=== PATIENT | female | born 1975 | race African-American/Black ===

== ENCOUNTER 2018-01-20 05:21 | Day surgery (SDC) | payer OTHER ==
[2018-01-14 15:49] VITALS: BMI 23.6
--- NOTE | 2018-01-20 09:29 | HP ---
[facility] - Chief Complaint Chief Complaint: left wrist pain History of Present Illness: left Dequervain's History Source: Patient Limitations to Obtaining History: No Limitations - Past Medical History Allergies/Adverse Reactions: Allergies Allergy/AdvReac Type Severity Reaction Status Date / Time No Known Allergies Allergy Verified 01/14/18 15:43 ...LMP: 09/27/17 ...LMP Comment: rai menopause? - Current Medications Current Medications: Home Medications Medication Instructions Recorded NK [No Known Home Medication] 01/14/18 Satellite Physical Exam - Physical Examination Vital Signs: Vital Signs Period Temp Pulse Resp BP Sys/Richards Pulse Ox Last 24 Hr 97.8 F 64 20 113/83 99 General Appearance: Well Nourished ENT: Clear Lung: Clear to auscultation Heart: Regular rate & rhythm Breasts: Soft Abdomen: Soft Extremities: No edema Satellite Impression/Plan - Impression/Plan Impression: left Dequervain's Operative Procedure: left Dequervain's release Date to be Performed: 01/20/18
[2018-01-20] MEDS ORDERED: LIDOCAINE HCL 2% (20ML MULTI-DOSE VIAL) NR ONE (09:41)
[2018-01-20] MEDS ORDERED: MIDAZOLAM HCL 2 MG/2 ML SINGLE DOSE VIAL ONE ×2 (09:52→10:03)
[2018-01-20] MEDS ORDERED: ceFAZolin SODIUM 1 GM VIAL IVPB ONE (10:10)
[2018-01-20] MEDS ORDERED: LIDOCAINE HCL 2% (50ML VIAL) PNB ONE (10:20)
[2018-01-20] MEDS ORDERED: BUPIVACAINE HCL/PF 0.5% (5MG/ML) 10 ML VIAL IJ ONE (10:20)
[2018-01-20] MEDS ORDERED: ONDANSETRON 4 MG/2 ML VIAL IVPUSH PRN (10:50)
[2018-01-20] MEDS ORDERED: oxyCODONE HCL 5 MG TABLET PO PRN (10:50)
[2018-01-20] MEDS ORDERED: PROMETHAZINE HCL 25 MG/1 ML VIAL IVPUSH PRN (10:50)
--- NOTE | 2018-01-20 10:54 | OP ---
Operative Note - Note: Operative Date: 01/20/18 Pre-Operative Diagnosis: left Dequervain's Operation: left Dequervain's release, tendon sheath excision Post-Operative Diagnosis: Same as Pre-op Surgeon: Noel Hu Anesthesiologist/COACH BUILDER: Wan Monroy Anesthesia: Local, MAC Specimens Removed: tendon sheath left wrist Estimated Blood Loss (mls): 0 Drains, Volume Out (mls): 0 Blood Volume Replaced (mls): 0 Fluid Volume Replaced (mls): 500 Operative Report Dictated: Yes
[2018-01-20] MEDS ORDERED: LACTATED RINGERS SOLUTION 1,000 ML IV SCH (11:00)
--- NOTE | 2018-01-20 11:29 | SPEC ---
DATE OF OPERATION: 01/20/2018 PREOPERATIVE DIAGNOSIS: Left de Quervain tenosynovitis. POSTOPERATIVE DIAGNOSIS: Left de Quervain tenosynovitis. PROCEDURE: Left de Quervain release and tendon sheath excision. SURGEON: Noel Hu MD GOLF [employer] WEIGHER: None. ANESTHESIOLOGIST: Wan Monroy MD ANESTHESIA: MAC and local injection of 10 mL of 0.5% Marcaine and 1% lidocaine mix. DRAINS: None. COMPLICATIONS: None. SPECIMEN: Tendon sheath, left wrist. BLOOD LOSS: None. BLOOD GIVEN: None. FLUID REPLACEMENT: Plasma-Lyte 500 mL. This patient is a 42-year-old female with a preoperative diagnosis of severe recurrent left de Quervain tenosynovitis. After understanding the potential risks, complications, alternatives and benefits of surgical versus nonsurgical treatment the patient elected to undergo this procedure. The patient was brought to the operating room. Peripheral IV placed. IV sedation given. Ancef 1 g IV was given. MAC anesthesia was induced. The tourniquet was applied to the left arm. The entire care was done under 3.8 loupe magnification. The left upper extremity was prepped and draped in a sterile fashion. A longitudinal incision was marked out with a marking pen. A mix of 10 mL of 0.5% Marcaine, 1% lidocaine were injected in and around the surgical area. The left upper extremity was then elevated, exsanguinated with an Esmarch bandage and the tourniquet inflated to 250 mmHg. A No. 15 scalpel blade was utilized to make a longitudinal incision. Subcutaneous hemostasis was achieved with a bipolar cautery. Dissection was done with a Littler scissors down to the 1st dorsal wrist compartment. Great care was taken to directly visualize and preserve all crossing sensory branches of the sensory nerve. Under direct visualization, the 1st dorsal wrist compartment was visualized and it was freed up from some adhesions with a [place] elevator. Next, a fresh No. 15 scalpel blade was utilized to open up the 1st dorsal wrist compartment, starting proximally and going distally both with the No. 15 scalpel blade and also with a Littler scissors. The anatomy was seen to have multiple slips of the abductor pollicis longus and the extensor pollicis brevis was in its own tendon tunnel. This was also released and the wall between the two excised. The roof of the tunnel was excised. This was all passed off the field as specimen. The volar lip of the 1st dorsal wrist compartment was preserved to prevent volar subluxation. The release was completed both distally and proximally in both compartments. I was able to bring out all slips through the wound with a Ragnell retractor and there were no obvious points of compression. There was a subsheath which was released. The extensor pollicis brevis was made up of 2 large slips as opposed to 1. The area was copiously irrigated and washed out, again explored and I did not see any other abnormal tissue and therefore closure was begun. Undyed 4-0 Vicryl was used to close the deep dermal layer. Final skin reapproximation was done with a running subcuticular 4-0 Biosyn stitch. The area was then washed and dried, covered with Steri-Strips, 4 x 4's, fluffs between the fingers, Webril and Coban used to make a thumb spica Coban splint. The tourniquet was taken down after a total tourniquet time of 22 minutes. There were no complications during the case. The patient tolerated the procedure quite well and was brought to ambulatory recovery room in stable condition. Cristobal [id number]
[2018-01-20 11:37] VITALS: TEMP 97.9
[2018-01-20 13:52] VITALS: BP 112/76; PULSE 58
--- NOTE | 2018-01-22 15:24 | PATH ---
Surgical Pathology Report Patient Name: DAVID BRAMBILA [facility]. Rec. #: [id number] /Age/Gender: 1975 (Age: 42) / F Account: [id number] Location: [facility] SURGICAL Taken: 01/20/2018 Received: 01/20/2018 Reported: 01/22/2018 Physicians: Noel Hu M.D. Specimen(s) Received TENDON SHEATH LEFT WRIST Clinical History Dequervains Final Diagnosis TENDON SHEATH, WRIST, LEFT, DE QUERVAIN'S RELEASE: BENIGN DENSE FIBROCONNECTIVE TISSUE, REACTIVE SYNOVIUM, FIBROADIPOSE TISSUE, AND SKELETAL MUSCLE. Electronically Signed Rain Cuello M.D. Gross Description Received in formalin labeled "tendon sheath left wrist," is a 1.6 x 1.4 x 0.2 cm aggregate of pavon-yellow portions of soft tissue. The specimen is submitted in toto in one cassette. 01/20/201801/20/2018
== END 2018-01-20 14:00 | disposition home or self-care (01) ==
LOC: JASU-SURG 05:21
PROVIDERS: ATTEND Orthopaedic Surgery
PROC: 0LB60ZZ Excision of Left Lower Arm and Wrist Tendon, Open Approach (ICD-10-PCS; 2018-01-20)
PROC: 0LN60ZZ Release Left Lower Arm and Wrist Tendon, Open Approach (ICD-10-PCS; principal; 2018-01-20 09:00)
DX: M65.4 Radial styloid tenosynovitis [de Quervain] (principal)
CPT/HCPCS: 84703